=== PATIENT | male | born 1955 | race Caucasian/White ===

== ENCOUNTER 2017-08-22 19:03 | Emergency (ER) | payer OTHER ==
[~2017-08-22] VITALS: Ht 185.4 cm; Wt 77.1 kg
[2017-08-22] MEDS ORDERED: SIMV40 PO (20:49)
== END 2017-08-22 20:57 | disposition home or self-care (01) ==
LOC: ER 19:03
DX: S01.111A Laceration without foreign body of right eyelid and periocular area, initial encounter (principal); H43.399 Other vitreous opacities, unspecified eye; W22.8XXA Striking against or struck by other objects, initial encounter
CPT/HCPCS: 99282